=== PATIENT | female | born 1965 | race Caucasian/White ===

== ENCOUNTER → 2019-01-10 | Outpatient (CLI) | payer OTHER ==
[~2019-01-10] MED LIST: ASPI-1197 PO; ATOR20TA65 PO; BIOT5000 PO; CETI-101 PO; FAMO40TA7 PO; FISH1CAP49 PO; LEVO100T12 PO; MELA5TAB14 PO; METF-527 PO; METO-408 PO; POTA10TA14 PO; SOY155CA PO; SUMA4CAR SQ
== END | disposition home or self-care (01) ==
LOC: OIH 13:23
PROVIDERS: ATTEND Family Medicine
DX: Z13.6 Encounter for screening for cardiovascular disorders (principal)
CPT/HCPCS: 75571